=== PATIENT | male | born 1945 ===

== ENCOUNTER 2019-08-09 17:38 | Inpatient (IN) | payer MEDICAID, MEDICARE ==
--- NOTE | 2019-08-09 19:56 | Emergency Department Report ---
ED General Adult HPI - General Chief complaint: Dyspnea/Respdistress Stated complaint: CHEST PAIN Time Seen by Provider: 08/09/19 19:28 Source: patient Mode of arrival: Stretcher Limitations: No Limitations - History of Present Illness Initial comments: The patient presents to the emergency department with a chief complaint of chest pain. Patient states he went to his primary care physician today and received 80 mg of Lasix and was sent back home via transport. Patient states all in all to go home he felt when he describes his fortified kicks in his chest was patient was extremely nervous. Patient denies any shortness of breath, abdominal pain, or headache -: Sudden Severity scale (0 -10): 0 Consistency: now resolved Improves with: none Worsens with: none Associated Symptoms: denies other symptoms Treatments Prior to Arrival: none - Related Data Home Medications Medication Instructions Recorded Confirmed Last Taken Apixaban [Eliquis] 2.5 mg PO BID 08/09/19 08/09/19 Unknown Furosemide [Lasix TAB] 40 mg PO QDAY 08/09/19 08/09/19 Unknown Metoprolol [Lopressor TAB] 25 mg PO BID 08/09/19 08/09/19 Unknown Pantoprazole [Protonix] 40 mg PO BID 08/09/19 08/09/19 Unknown Spironolactone [Aldactone] 25 mg PO QDAY 08/09/19 08/09/19 Unknown Allergies Allergy/AdvReac Type Severity Reaction Status Date / Time lisinopril Allergy Angioedema Verified 08/09/19 21:15 ED Review of Systems ROS: Stated complaint: CHEST PAIN Other details as noted in HPI Comment: All other systems reviewed and negative Constitutional: denies: chills, fever Eyes: denies: eye pain, eye discharge, vision change ENT: denies: ear pain, throat pain Respiratory: denies: cough, shortness of breath, wheezing Cardiovascular: chest pain. denies: palpitations Endocrine: no symptoms reported Gastrointestinal: denies: abdominal pain, nausea, diarrhea Genitourinary: denies: urgency, dysuria Musculoskeletal: denies: back pain, joint swelling, arthralgia Skin: denies: rash, lesions Neurological: denies: headache, weakness, paresthesias Psychiatric: denies: anxiety, depression Hematological/Lymphatic: denies: easy bleeding, easy bruising ED Past Medical Hx - Past Medical History Hx Hypertension: Yes Hx Congestive Heart Failure: Yes Hx Renal Disease: Yes Hx Dementia: Yes Additional medical history: BPH, Afib, angina, pulmonary hypertension, cardiomyopathy - Surgical History Additional Surgical History: R shoulder - Social History Smoking Status: Former Smoker - Medications Home Medications: Home Medications Medication Instructions Recorded Confirmed Last Taken Type Apixaban [Eliquis] 2.5 mg PO BID 08/09/19 08/09/19 Unknown History Furosemide [Lasix TAB] 40 mg PO QDAY 08/09/19 08/09/19 Unknown History Metoprolol [Lopressor TAB] 25 mg PO BID 08/09/19 08/09/19 Unknown History Pantoprazole [Protonix] 40 mg PO BID 08/09/19 08/09/19 Unknown History Spironolactone [Aldactone] 25 mg PO QDAY 08/09/19 08/09/19 Unknown History ED Physical Exam - General Limitations: No Limitations General appearance: alert, in no apparent distress - Head Head exam: Present: atraumatic, normocephalic - Eye Eye exam: Present: normal appearance, PERRL, EOMI - ENT ENT exam: Present: mucous membranes moist - Neck Neck exam: Present: normal inspection - Respiratory Respiratory exam: Present: normal lung sounds bilaterally. Absent: respiratory distress - Cardiovascular Cardiovascular Exam: Present: regular rate, normal rhythm. Absent: systolic murmur, diastolic murmur, rubs, gallop - GI/Abdominal GI/Abdominal exam: Present: soft, normal bowel sounds. Absent: distended, tenderness - Rectal Rectal exam: Present: deferred - Extremities Exam Extremities exam: Present: normal inspection - Back Exam Back exam: Present: normal inspection - Neurological Exam Neurological exam: Present: alert, oriented X3, CN II-XII intact. Absent: motor sensory deficit - Psychiatric Psychiatric exam: Present: normal affect, normal mood - Skin Skin exam: Present: warm, dry, intact, normal color. Absent: rash ED Course Vital Signs 08/09/19 18:37 Temperature 97.8 F Pulse Rate 70 Respiratory 20 Rate Blood Pressure 145/60 O2 Sat by Pulse 100 Oximetry ED Medical Decision Making - Lab Data Result diagrams: 08/09/19 19:41 08/09/19 19:41 Lab Results 08/09/19 08/09/19 08/09/19 Range/Units 19:41 19:41 19:41 WBC 7.4 (4.5-11.0) K/mm3 RBC 4.30 (3.65-5.03) M/mm3 Hgb 12.5 (11.8-15.2) gm/dl Hct 37.7 (35.5-45.6) % MCV 88 (84-94) fl MCH 29 (28-32) pg MCHC 33 (32-34) % RDW 14.3 (13.2-15.2) % Plt Count 152 (140-440) K/mm3 Lymph % (Auto) 14.0 (13.4-35.0) % [place] % (Auto) 8.1 H (0.0-7.3) % Eos % (Auto) 0.1 (0.0-4.3) % Baso % (Auto) 0.5 (0.0-1.8) % Lymph # 1.0 L (1.2-5.4) K/mm3 [place] # 0.6 (0.0-0.8) K/mm3 Eos # 0.0 (0.0-0.4) K/mm3 Baso # 0.0 (0.0-0.1) K/mm3 Seg Neutrophils % 77.3 H (40.0-70.0) % Seg Neutrophils # 5.7 (1.8-7.7) K/mm3 Sodium 141 (137-145) mmol/L Potassium 3.8 (3.6-5.0) mmol/L Chloride 100.0 (98-107) mmol/L Carbon Dioxide 24 (22-30) mmol/L Anion Gap 21 mmol/L BUN 28 H (9-20) mg/dL Creatinine 1.4 (0.8-1.5) mg/dL Estimated GFR 49 ml/min BUN/Creatinine Ratio 20 % Glucose 94 (75-100) mg/dL Calcium 9.5 (8.4-10.2) mg/dL Magnesium 2.00 (1.7-2.3) mg/dL Total Bilirubin 0.50 (0.1-1.2) mg/dL AST 27 (5-40) units/L ALT 22 (7-56) units/L Alkaline Phosphatase 73 (35-129) units/L Troponin T 0.088 H (0.00-0.029) ng/mL NT-Pro-B Natriuret Pep 1836 H (0-900) pg/mL Total Protein 7.8 (6.3-8.2) g/dL Albumin 4.2 (3.9-5) g/dL Albumin/Globulin Ratio 1.2 % Triglycerides 39 (2-149) mg/dL Cholesterol 168 (50-199) mg/dL LDL Cholesterol Direct 102 (50-130) mg/dL HDL Cholesterol 72 H (40-59) mg/dL Cholesterol/HDL Ratio 2.33 % 08/09/ Range/Units 21:21 WBC (4.5-11.0) K/mm3 RBC (3.65-5.03) M/mm3 Hgb (11.8-15.2) gm/dl Hct (35.5-45.6) % MCV (84-94) fl MCH (28-32) pg MCHC (32-34) % RDW (13.2-15.2) % Plt Count (140-440) K/mm3 Lymph % (Auto) (13.4-35.0) % [place] % (Auto) (0.0-7.3) % Eos % (Auto) (0.0-4.3) % Baso % (Auto) (0.0-1.8) % Lymph # (1.2-5.4) K/mm3 [place] # (0.0-0.8) K/mm3 Eos # (0.0-0.4) K/mm3 Baso # (0.0-0.1) K/mm3 Seg Neutrophils % (40.0-70.0) % Seg Neutrophils # (1.8-7.7) K/mm3 Sodium (137-145) mmol/L Potassium (3.6-5.0) mmol/L Chloride (98-107) mmol/L Carbon Dioxide (22-30) mmol/L Anion Gap mmol/L BUN (9-20) mg/dL Creatinine (0.8-1.5) mg/dL Estimated GFR ml/min BUN/Creatinine Ratio % Glucose (75-100) mg/dL Calcium (8.4-10.2) mg/dL Magnesium (1.7-2.3) mg/dL Total Bilirubin (0.1-1.2) mg/dL AST (5-40) units/L ALT (7-56) units/L Alkaline Phosphatase (35-129) units/L Troponin T 0.086 H (0.00-0.029) ng/mL NT-Pro-B Natriuret Pep (0-900) pg/mL Total Protein (6.3-8.2) g/dL Albumin (3.9-5) g/dL Albumin/Globulin Ratio % Triglycerides (2-149) mg/dL Cholesterol (50-199) mg/dL LDL Cholesterol Direct (50-130) mg/dL HDL Cholesterol (40-59) mg/dL Cholesterol/HDL Ratio % - EKG Data -: EKG Interpreted by Me - EKG Data Interpretation: other (PVCs) - Radiology Data Radiology results: report reviewed - Medical Decision Making Past and scientific contacted and will come to interrogate the patient's defibrillator The balloon was interrogated and the patient has since was a V. tach and was shocked since times Spoke to Dr. Shearer will see patient as a consult Amiodarone drip initiated Critical Care Time: Yes Critical care time in (mins) excluding proc time.: 45 Critical care attestation.: If time is entered above; I have spent that time in minutes in the direct care of this critically ill patient, excluding procedure time. ED Disposition Clinical Impression: V-tach Disposition: DC-09 OP ADMIT IP TO THIS HOSP Is pt being admited?: Yes Does the pt Need Aspirin: No Condition: Fair
[2019-08-09 20:07] LABS: Basophils % (Auto) 0.5 % (0.0-1.8); Eosinophils % (Auto) 0.1 % (0.0-4.3); Hematocrit 37.7 % (35.5-45.6); Hemoglobin 12.5 gm/dl (11.8-15.2); Mean Corpuscular HGB Conc 33 % (32-34); Mean Corpuscular Volume 88 fl (84-94); Monocytes # (Auto) 0.6 K/mm3 (0.0-0.8); Monocytes % (Auto) 8.1 % (0.0-7.3); Platelet Count 152 K/mm3 (140-440); Red Cell Distribution Width 14.3 % (13.2-15.2)
--- NOTE | 2019-08-09 20:17 | XRay Report ---
CHEST 1 VIEW INDICATION: defib/CP COMPARISON: None FINDINGS: Support devices: Pacemaker in position. Heart: Upper limits of normal Lungs/Pleura: No pulmonary edema, pleural fluid or acute parenchymal disease. IMPRESSION: 1. No acute disease. Signer Name: Aniket Abreu MD Signed: 08/09/2019 8:13 PM Workstation Name: [id number]
[2019-08-09 20:19] LABS: Calcium 9.5 mg/dL (8.4-10.2)
[2019-08-09 20:20] LABS: Albumin 4.2 g/dL (3.9-5)
[2019-08-09 20:33] LABS: Chol/HDL Ratio 2.33 %
[2019-08-09] MEDS ORDERED: AMIODARONE 150 MG in DEXTROSE 5% IN WATER 97 ML IV ONE (21:45)
[2019-08-09] MEDS ORDERED: AMIODARONE 900 MG in DEXTROSE 5% IN WATER 482 ML IV SCH (22:00)
[2019-08-09] MEDS ORDERED: MORPHINE 2 MG/1 ML INJ IV PRN (22:31)
[2019-08-09] MEDS ORDERED: MAGNESIUM HYDROXIDE (MOM) ORAL LIQD UDC PO PRN (22:31)
--- NOTE | 2019-08-09 23:20 | History and Physical Report ---
History of Present Illness Date of examination: 08/09/19 Date of admission: 08/09/19 22:31 Chief complaint: Chest pain History of present illness: Patient is a 73-year-old -[place] male with known history of congestive heart failure and also history of defibrillator total pacemaker in place presenting to the emergency room today with chest pain. He had gone to his primary care physician earlier today and was returning to his home when he suddenly had multiple episodes of chest discomfort. He denies any shortness of breath. No nausea vomiting. No headache or dizziness. Upon arrival in the emergency room patient was found to be in V. tach. He was subsequently cardioverted and placed on amiodarone drip. His defibrillator and pacemaker was also interrogated. Automatic [employer]ancy [employer] addiction nurse was notified by the ER physician. Past History Past Medical History: heart failure Past Surgical History: Other (History of defibrillator and pacemaker placement, right shoulder surgery in the past.) Social history: no significant social history Family history: diabetes, stroke Medications and Allergies Allergies Allergy/AdvReac Type Severity Reaction Status Date / Time lisinopril Allergy Angioedema Verified 08/09/19 21:15 Home Medications Medication Instructions Recorded Confirmed Last Taken Type Apixaban [Eliquis] 2.5 mg PO BID 08/09/19 08/09/19 Unknown History Furosemide [Lasix TAB] 40 mg PO QDAY 08/09/19 08/09/19 Unknown History Metoprolol [Lopressor TAB] 25 mg PO BID 08/09/19 08/09/19 Unknown History Pantoprazole [Protonix] 40 mg PO BID 08/09/19 08/09/19 Unknown History Spironolactone [Aldactone] 25 mg PO QDAY 08/09/19 08/09/19 Unknown History Active Meds: Active Medications Amiodarone HCl 900 mg/ (Dextrose) 500 mls @ 33.333 mls/hr IV DIRECT LAN; Protocol Magnesium Hydroxide (Milk Of Magnesia) 30 ml PO Q4H PRN PRN Reason: Constipation Morphine Sulfate (Morphine) 2 mg IV Q4H PRN PRN Reason: Pain, Moderate (4-6) Sodium Chloride (Sodium Chloride Flush Syringe 10 Ml) 10 ml IV BID LAN Sodium Chloride (Sodium Chloride Flush Syringe 10 Ml) 10 ml IV PRN PRN PRN Reason: LINE FLUSH Review of Systems Cardiovascular: chest pain Exam - Constitutional Vitals: Temp Pulse Resp BP Pulse Ox 97.8 F 70 20 145/60 100 08/09/19 18:37 08/09/19 18:37 08/09/19 18:37 08/09/19 18:37 08/09/19 18:37 General appearance: Present: no acute distress, well-nourished - EENT Eyes: Present: PERRL ENT: hearing intact, clear oral mucosa, dentition normal - Neck Neck: Present: supple, normal ROM - Respiratory Respiratory effort: normal Respiratory: bilateral: CTA - Cardiovascular Rhythm: regular Heart Sounds: Present: S1 & S2 - Extremities Extremities: no ischemia Extremity abnormal: edema (1+ right lower extremity edema, trace left ankle edema.) Peripheral Pulses: within normal limits - Abdominal General gastrointestinal: Present: soft, non-tender, tender - Integumentary Integumentary: Present: clear, warm, dry - Musculoskeletal Musculoskeletal: strength equal bilaterally - Psychiatric Psychiatric: appropriate mood/affect, intact judgment & insight, cooperative - Neurologic Neurologic: CNII-XII intact, moves all extremities Results - Labs CBC & Chem 7: 08/10/19 03:37 08/10/19 03:37 Labs: Abnormal lab results 08/09/19 08/09/19 08/09/19 Range/Units 19:41 19:41 19:41 [place] % (Auto) 8.1 H (0.0-7.3) % Lymph # 1.0 L (1.2-5.4) K/mm3 Seg Neutrophils % 77.3 H (40.0-70.0) % BUN 28 H (9-20) mg/dL Troponin T 0.088 H (0.00-0.029) ng/mL NT-Pro-B Natriuret Pep 1836 H (0-900) pg/mL HDL Cholesterol 72 H (40-59) mg/dL 08/09/19 Range/Units 21:21 [place] % (Auto) (0.0-7.3) % Lymph # (1.2-5.4) K/mm3 Seg Neutrophils % (40.0-70.0) % BUN (9-20) mg/dL Troponin T 0.086 H (0.00-0.029) ng/mL NT-Pro-B Natriuret Pep (0-900) pg/mL HDL Cholesterol (40-59) mg/dL Assessment and Plan - Patient Problems (1) V-tach Current Visit: Yes Status: Acute Plan to address problem: Patient has been successfully cardioverted and placed on amiodarone drip. Will be closely monitored in the intensive care unit. We await further recommendation from cardiology. (2) DVT prophylaxis Current Visit: Yes Status: Acute Plan to address problem: Placed on subcutaneous heparin. (3) Full code status Current Visit: Yes Status: Acute
[2019-08-09] MEDS: ASPIRIN 81 MG TAB CHEW PO ONE (23:49)
[2019-08-10] MEDS ORDERED: ASPIRIN 81 MG TAB CHEW ONE (00:51)
[2019-08-10] MEDS ORDERED: MORPHINE 2 MG/1 ML INJ ONE (00:51)
[2019-08-10] MEDS: ASPIRIN 81 MG TAB CHEW PO ONE (00:59)
[2019-08-10] MEDS ORDERED: ALPRAZolam 0.25 MG TAB PO PRN (02:12)
[2019-08-10] MEDS ORDERED: ALPRAZolam 0.25 MG TAB ONE (02:18)
[2019-08-10 04:21] LABS: Basophils % (Auto) 0.6 % (0.0-1.8); Eosinophils % (Auto) 0.3 % (0.0-4.3); Lymphocytes # (Auto) 1.2 K/mm3 (1.2-5.4); Lymphocytes % (Auto) 15.9 % (13.4-35.0); Mean Corpuscular HGB Conc 32 % (32-34); Mean Corpuscular Volume 88 fl (84-94); Monocytes # (Auto) 0.9 K/mm3 (0.0-0.8); Monocytes % (Auto) 11.4 % (0.0-7.3); Platelet Count 150 K/mm3 (140-440); Red Blood Count 4.21 M/mm3 (3.65-5.03); Red Cell Distribution Width 14.1 % (13.2-15.2)
[2019-08-10 04:30] LABS: INR 1.08 (0.87-1.13)
[2019-08-10 04:42] LABS: Calcium 9.3 mg/dL (8.4-10.2)
--- NOTE | 2019-08-10 10:45 | Consultation ---
History of Present Illness Consult date: 08/10/19 Consult reason: arrhythmia History of present illness: This is a 73-year old male with an extensive cardiac history who receives his usual cardiac care with [facility]. Patient has a history of nonischemic cardiomyopathy and non-obstructive coronary artery disease by cardiac cath in 2014. Two years ago, he underwent a persantine thallium stress test that reported no ischemia. Patient has a [employer] cardiac defibrillator insitu. He has a history of paroxysmal atrial fibrillation and ventricular tachycardia status post ablation. Patient was previously treated with amiodarone for suppression but this was stopped by his commercial relationship manager several months ago. He on Eliquis for oral anticoagulation. Yesterday, patient went to his primary care office with reports of shortness of breath and lower extremity edema. Patient reports he was given two injection of presumably lasix. Patient reports on his way home, he became anxious, noted chest pain with palpitations and had multiple ICD shocks. Patient was brought to the emergency department for further evaluation. Initial lab measures a magnesium at 2.0 and a potassium of 3.8. His ICD was interrogated in the emergency department with reports of multiple shocks for VT and VF. He was marisol samia with intravenous amiodarone and admitted to the hospital. Cardiac consultation has been requested. Past History Family history: diabetes, stroke Medications and Allergies Allergies Allergy/AdvReac Type Severity Reaction Status Date / Time lisinopril Allergy Angioedema Verified 08/09/19 21:15 Home Medications Medication Instructions Recorded Confirmed Last Taken Type Apixaban [Eliquis] 2.5 mg PO BID 08/09/19 08/09/19 Unknown History Furosemide [Lasix TAB] 40 mg PO QDAY 08/09/19 08/09/19 Unknown History Metoprolol [Lopressor TAB] 25 mg PO BID 08/09/19 08/09/19 Unknown History Pantoprazole [Protonix] 40 mg PO BID 08/09/19 08/09/19 Unknown History Spironolactone [Aldactone] 25 mg PO QDAY 08/09/19 08/09/19 Unknown History Active Meds: Active Medications Alprazolam (Xanax) 0.25 mg PO Q8H PRN PRN Reason: Anxiety Amiodarone HCl 900 mg/ (Dextrose) 500 mls @ 33.333 mls/hr IV DIRECT LAN; Protocol Last Titration: 08/10/19 05:36 Dose: 0.5 mg/min, 16.667 mls/hr Documented by: Magnesium Hydroxide (Milk Of Magnesia) 30 ml PO Q4H PRN PRN Reason: Constipation Morphine Sulfate (Morphine) 2 mg IV Q4H PRN PRN Reason: Pain, Moderate (4-6) Last Admin: 08/10/19 00:59 Dose: 2 mg Documented by: Sodium Chloride (Sodium Chloride Flush Syringe 10 Ml) 10 ml IV BID LAN Sodium Chloride (Sodium Chloride Flush Syringe 10 Ml) 10 ml IV PRN PRN PRN Reason: LINE FLUSH Physical Examination Vital Signs Pulse Resp Pulse Ox 78 15 97 08/09/19 18:36 08/09/19 18:36 08/09/19 18:36 General appearance: no acute distress HEENT: Positive: PERRL Neck: Positive: trachea midline Cardiac: Positive: Other (paced) Lungs: Positive: Decreased Breath Sounds Neuro: Positive: Weakness Extremities: Absent: edema Results 08/10/19 03:37 08/10/19 03:37 Cardiac Enzymes 08/09/19 Range/Units 19:41 AST 27 (5-40) units/L Coagulation 08/10/19 Range/Units 03:37 PT 13.9 (12.2-14.9) Sec. INR 1.08 (0.87-1.13) APTT 27.0 (24.2-36.6) Sec. Lipids 08/09/19 Range/Units 19:41 Triglycerides 39 (2-149) mg/dL Cholesterol 168 (50-199) mg/dL HDL Cholesterol 72 H (40-59) mg/dL Cholesterol/HDL Ratio 2.33 % CBC 08/09/19 08/10/19 Range/Units 19:41 03:37 WBC 7.4 7.6 (4.5-11.0) K/mm3 RBC 4.30 4.21 (3.65-5.03) M/mm3 Hgb 12.5 12.0 (11.8-15.2) gm/dl Hct 37.7 37.0 (35.5-45.6) % Plt Count 152 150 (140-440) K/mm3 Lymph # 1.0 L 1.2 (1.2-5.4) K/mm3 [place] # 0.6 0.9 H (0.0-0.8) K/mm3 Eos # 0.0 0.0 (0.0-0.4) K/mm3 Baso # 0.0 0.0 (0.0-0.1) K/mm3 Comprehensive Metabolic Panel 08/09/19 08/10/19 Range/Units 19:41 03:37 Sodium 141 143 (137-145) mmol/L Potassium 3.8 4.0 (3.6-5.0) mmol/L Chloride 100.0 101.6 (98-107) mmol/L Carbon Dioxide 24 28 (22-30) mmol/L BUN 28 H 26 H (9-20) mg/dL Creatinine 1.4 1.6 H (0.8-1.5) mg/dL Glucose 94 107 H (75-100) mg/dL Calcium 9.5 9.3 (8.4-10.2) mg/dL AST 27 (5-40) units/L ALT 22 (7-56) units/L Alkaline Phosphatase 73 (35-129) units/L Total Protein 7.8 (6.3-8.2) g/dL Albumin 4.2 (3.9-5) g/dL Assessment and Plan ICD discharge for VT/VF on interrogation on IV amiodarone Hx of Non-obstructive CAD no ischemia by MPI 2016 Hx of Nonischemic CMP Hx of VT and paroxysmal Afib on eliquis for oral anticoagulation prior AV node ablation Dementia Recommendations: Keep magnesium >2 and potassium >4. Continue amiodarone for suppression of arrhythmias. Medical therapy for non-obstructive cardiomyopathy and nonischemic cardiomyopathy.
--- NOTE | 2019-08-10 13:22 | Progress Note ---
Assessment and Plan Assessment and plan: 73M who presents after discharge from ICD Recurrent VT s/p multiple AICD shocks was on amio drip , and then switched to po amio improved cardiology input appreciated Of note additionally the patient has Permanent afib s/p AV stephanie ablation s/p ICD placement (SOCIAL WORK PROGRAM COORDINATOR-D) Non-ischemic cardiomyopathy, LVEF 25-30% Chronic systolic heart failure - compensated on exam History Interval history: Review of systems Constitutional: No fevers, no malaise, no joint pains CVS: No chest pain, no orthopnea, no pedal edema GI: No abdominal pain, no diarrhea, no vomiting, no constipation Respiratory: , no wheezing, no coughing Hospitalist Physical - Physical exam Narrative exam: General.: Appears well, no distress, nontoxic HEENT: Moist mucous membranes, extraocular muscles intact, no lymphadenopathy Neck: supple Cardiac: S1-S2 heard Lungs: clear to auscultation bilaterally Abdomen: soft , nontender, nondistended, bowel sounds positive Extremities: no edema clubbing or cyanosis Skin: no rash or lesions Neurologic: no gross focal deficits Psych: calm, and cooperative - Constitutional Vitals: Temp Pulse Resp BP Pulse Ox 98.2 F 66 16 122/68 97 08/10/19 07:15 08/10/19 09:15 08/10/19 09:15 08/10/19 09:30 08/10/19 09:30 General appearance: Present: no acute distress Results - Labs CBC & Chem 7: 08/10/19 03:37 08/10/19 03:37 Labs: Laboratory Last Values WBC 7.6 K/mm3 (4.5-11.0) 08/10/19 03:37 RBC 4.21 M/mm3 (3.65-5.03) 08/10/19 03:37 Hgb 12.0 gm/dl (11.8-15.2) 08/10/19 03:37 Hct 37.0 % (35.5-45.6) 08/10/19 03:37 MCV 88 fl (84-94) 08/10/19 03:37 MCH 29 pg (28-32) 08/10/19 03:37 MCHC 32 % (32-34) 08/10/19 03:37 RDW 14.1 % (13.2-15.2) 08/10/19 03:37 Plt Count 150 K/mm3 (140-440) 08/10/19 03:37 Lymph % (Auto) 15.9 % (13.4-35.0) 08/10/19 03:37 [place] % (Auto) 11.4 % (0.0-7.3) H 08/10/19 03:37 Eos % (Auto) 0.3 % (0.0-4.3) 08/10/19 03:37 Baso % (Auto) 0.6 % (0.0-1.8) 08/10/19 03:37 Lymph # 1.2 K/mm3 (1.2-5.4) 08/10/19 03:37 [place] # 0.9 K/mm3 (0.0-0.8) H 08/10/19 03:37 Eos # 0.0 K/mm3 (0.0-0.4) 08/10/19 03:37 Baso # 0.0 K/mm3 (0.0-0.1) 08/10/19 03:37 Seg Neutrophils % 71.8 % (40.0-70.0) H 08/10/19 03:37 Seg Neutrophils # 5.5 K/mm3 (1.8-7.7) 08/10/19 03:37 PT 13.9 Sec. (12.2-14.9) 08/10/19 03:37 INR 1.08 (0.87-1.13) 08/10/19 03:37 APTT 27.0 Sec. (24.2-36.6) 08/10/19 03:37 Sodium 143 mmol/L (137-145) 08/10/19 03:37 Potassium 4.0 mmol/L (3.6-5.0) 08/10/19 03:37 Chloride 101.6 mmol/L (98-107) 08/10/19 03:37 Carbon Dioxide 28 mmol/L (22-30) 08/10/19 03:37 Anion Gap 17 mmol/L 08/10/19 03:37 BUN 26 mg/dL (9-20) H 08/10/19 03:37 Creatinine 1.6 mg/dL (0.8-1.5) H 08/10/19 03:37 Estimated GFR 42 ml/min 08/10/19 03:37 BUN/Creatinine Ratio 16 % 08/10/19 03:37 Glucose 107 mg/dL (75-100) H 08/10/19 03:37 Calcium 9.3 mg/dL (8.4-10.2) 08/10/19 03:37 Magnesium 2.00 mg/dL (1.7-2.3) 08/09/19 19:41 Total Bilirubin 0.50 mg/dL (0.1-1.2) 08/09/19 19:41 AST 27 units/L (5-40) 08/09/19 19:41 ALT 22 units/L (7-56) 08/09/19 19:41 Alkaline Phosphatase 73 units/L (35-129) 08/09/19 19:41 Troponin T 0.086 ng/mL (0.00-0.029) H 08/09/19 21:21 NT-Pro-B Natriuret Pep 1836 pg/mL (0-900) H 08/09/19 19:41 Total Protein 7.8 g/dL (6.3-8.2) 08/09/19 19:41 Albumin 4.2 g/dL (3.9-5) 08/09/19 19:41 Albumin/Globulin Ratio 1.2 % 08/09/19 19:41 Triglycerides 39 mg/dL (2-149) 08/09/19 19:41 Cholesterol 168 mg/dL (50-199) 08/09/19 19:41 LDL Cholesterol Direct 102 mg/dL (50-130) 08/09/19 19:41 HDL Cholesterol 72 mg/dL (40-59) H 08/09/19 19:41 Cholesterol/HDL Ratio 2.33 % 08/09/19 19:41 TSH 0.020 mlU/mL (0.270-4.200) L 08/10/19 10:08 Free T4 1.42 ng/dL (0.76-1.46) 08/10/19 10:08 Active Medications - Current Medications Current Medications: Generic Name Dose Route Start Last Admin Trade Name Freq PRN Reason Stop Dose Admin Alprazolam 0.25 mg 08/10/19 02:12 Xanax PO Q8H PRN Anxiety Amiodarone HCl 400 mg 08/10/19 22:00 Cordarone PO 08/20/19 21:59 BID LAN Amiodarone HCl 900 mg/ 500 mls @ 33.333 mls/hr 08/09/19 22:00 08/10/19 05:36 Dextrose IV 0.5 mg/min DIRECT LAN 16.667 mls/hr Titration Protocol 1 MG/MIN Magnesium Hydroxide 30 ml 08/09/19 22:31 Milk Of Magnesia PO Q4H PRN Constipation Metoprolol Succinate 50 mg 08/11/19 10:00 Metoprolol Xl PO QDAY LAN Morphine Sulfate 2 mg 08/09/19 22:31 08/10/19 00:59 Morphine IV 2 mg Q4H PRN Administration Pain, Moderate (4-6) Sodium Chloride 10 ml 08/10/19 10:00 08/10/19 12:13 Sodium Chloride Flush Syringe 10 Ml IV 10 ml BID LAN Administration Sodium Chloride 10 ml 08/09/19 22:31 Sodium Chloride Flush Syringe 10 Ml IV PRN PRN LINE FLUSH Spironolactone 25 mg 08/11/19 10:00 Aldactone PO QDAY [facility] Nutrition/Malnutrition Assess - Dietary Evaluation Nutrition/Malnutrition Findings: Nutrition Notes Start: 08/10/19 12:37 Freq: Status: Active Protocol: Document 08/10/19 12:37 CT (Rec: 08/10/19 12:54 CT [id number]) Co-Sign 08/10/19 12:37 LP Nutrition Notes Need for Assessment generated from: MD Order Initial or Follow up Assessment Current Diagnosis Hypertension,Heart Failure Other Pertinent Diagnosis V-tach Current Diet Cardiac Diet Labs/Tests BUN 26 Creatinine 1.6 HDL 72 Pertinent Medications Reviewed Height 5 ft 11 in Weight 68.039 kg Usual Body Weight 63.503 kg [place] Body Weight (kg) 78.18 BMI 20.9 Intake Prior to Admission Good Subjective/Other Information Pt was with RN at time of visit and seemed very disorientated. Pt daughter was on the phone helping pt answer questions. Pt daughter stated that pt is trying to get dental work done but he does not have any issues chewing or swallowing. Noted temporal and clavicle wasting. Pt did not want Cardiac Diet education at time of visit, handout was left for pt and pt daughter to read. Pt stated to come back for education. Burn Absent Trauma Absent GI Symptoms None Minimum of two criteria No Muscle Mass Mild Depletion (non-severe) #2 Nutrition Diagnosis Predicted suboptimal energy intake Etiology pt disoriented As Evidenced by Signs and Symptoms not observing pt eating #1 Nutrition Diagnosis Food and nutrition-related knowledge deficit Etiology no prior knowledge on cardiac diet As Evidenced by Signs and Symptoms pt wanting RD to come back to give education, pt very disoriented Is patient on ventilator? No Is Patient Ambulatory and/or Out of Bed Yes REE-([facility]-ambulatory/OOB) [ [id number] [id number]] Calculation Used for Recommendations [facility] Additional Notes Protein needs: 68-82 g/day (1- 1.2 g/kg/day) Fluid needs: 1 ml/kcal Nutrition Intervention Change Diet Order: Continue current diet Teaching Recipient Patient Learning Readiness Poor Teaching Methods Discussion,Handout Response to Teaching Unable to comprehend Education Handouts Provided Cardiac Diet Barriers to Learning Cognitive/Verbal RD phone number provided Yes Patient aware of follow up options Yes Goal #1 Meet >80% of energy and protien needs Follow-Up By: 08/14/19 Additional Comments Follow up for PO intakes Cardiac diet education
[2019-08-10] MEDS: AMIODARONE 200 MG TAB PO SCH (22:33)
[2019-08-10] MEDS: DOCUSATE SODIUM 100 MG CAP PO SCH (22:33)
[2019-08-11] MEDS: SPIRONOLACTONE 25 MG TAB PO SCH ×2 (08:55→09:11)
[2019-08-11] MEDS: DOCUSATE SODIUM 100 MG CAP PO SCH ×2 (08:56→09:11)
[2019-08-11] MEDS: METOPROLOL SUCCINATE XL 50 MG TAB PO SCH ×2 (08:56→09:11)
[2019-08-11] MEDS: AMIODARONE 200 MG TAB PO SCH ×2 (08:56→09:11)
--- NOTE | 2019-08-11 09:55 | Progress Note ---
Assessment and Plan - Patient Problems (1) Cardiomyopathy Current Visit: Yes Status: Acute (2) V-tach Current Visit: Yes Status: Acute Subjective Date of service: 08/11/19 Interval history: NO C/O Objective Vital Signs Temp Pulse Resp BP Pulse Ox 08/11/19 07:32 98.1 F 74 18 122/66 100 08/11/19 04:53 97.8 F 08/11/19 04:50 71 18 125/77 100 08/10/19 23:41 98.2 F 08/10/19 23:40 78 18 122/69 99 08/10/19 22:00 75 18 08/10/19 20:34 85 20 120/89 98 08/10/19 19:40 99.1 F 08/10/19 19:38 79 18 125/63 98 08/10/19 16:57 98.6 F 41 L 18 109/70 98 - Physical Examination General: No Apparent Distress HEENT: Positive: PERRL Neck: Positive: trachea midline Cardiac: Positive: Reg Rate and Rhythm Lungs: Positive: clear to auscultation Neuro: Positive: Grossly Intact, Weakness Abdomen: Positive: Unremarkable Extremities: Present: normal. Absent: edema
[2019-08-11 11:24] VITALS: BP 113/61
--- NOTE | 2019-08-11 13:48 | Discharge Summary ---
Providers - Providers Date of Admission: 08/09/19 22:31 Attending physician: ARBEN ODEN MD 08/09/19 22:14 Consult to Cardiology [CONS] Routine Consulting Provider: GIL DAVENPORT Reason For Exam: vtach 08/09/19 22:31 Consult to Dietitian/Nutrition [CONS] Routine Physician Instructions: Reason For Exam: Reason for Consult: Diet education Primary care physician: [id number] OPERATOR Hospitalization Condition: Fair Hospital course: 73M who presents after discharge from ICD Recurrent VT s/p multiple AICD shocks was on amio drip , and then switched to po amio and metoprolol and improved cardiology input appreciated Of note additionally the patient has Permanent afib s/p AV stephanie ablation s/p ICD placement (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) Non-ischemic cardiomyopathy, LVEF 25-30% Chronic systolic heart failure - compensated on exam Disposition: DC-01 TO HOME OR SELFCARE Time spent for discharge: 33 mins Core Measure Documentation - Palliative Care Palliative Care/ Comfort Measures: Not Applicable - Core Measures Any of the following diagnoses?: heart failure - Heart Failure Discharge Requirements BENITO/ARB for LVSD if EF <40%: Yes Beta tami at discharge: Yes Exam - Constitutional Vitals: Temp Pulse Resp BP Pulse Ox 98.4 F 70 18 113/61 98 08/11/19 11:21 08/11/19 11:21 08/11/19 11:21 08/11/19 11:21 08/11/19 11:21 General appearance: Present: no acute distress, well-nourished - EENT Eyes: Present: PERRL ENT: hearing intact, clear oral mucosa - Neck Neck: Present: supple, normal ROM - Respiratory Respiratory effort: normal Respiratory: bilateral: CTA - Cardiovascular Heart Sounds: Present: S1 & S2. Absent: rub, click - Extremities Extremities: pulses symmetrical, No edema Peripheral Pulses: within normal limits - Abdominal General gastrointestinal: Present: soft, non-tender, non-distended, normal bowel sounds Male genitourinary: Present: normal - Integumentary Integumentary: Present: clear, warm, dry - Musculoskeletal Musculoskeletal: gait normal, strength equal bilaterally - Psychiatric Psychiatric: appropriate mood/affect, intact judgment & insight - Neurologic Neurologic: CNII-XII intact, moves all extremities Plan Follow up with: MIL BEARD MD [Staff Physician] - 7 Days PRIMARY CARE, [Primary Care Provider] - 3-5 Days Prescriptions: Amiodarone [Cordarone 200 MG TAB] 400 mg PO BID #120 tablet Metoprolol Xl [Metoprolol SUCCINATE ER TAB] 50 mg PO QDAY #90 tablet
== END 2019-08-11 16:21 | disposition home or self-care (01) | DRG 309 ==
LOC: ED 17:38 → CC1 22:31 → 4A 08-10 08:42
PROVIDERS: ADMIT Internal Medicine Geriatric Medicine; ATTEND Internal Medicine
PROC: 4B02XTZ Measurement of Cardiac Defibrillator, External Approach (ICD-10-PCS; principal; 2019-08-09)
PROC: 5A2204Z Restoration of Cardiac Rhythm, Single (ICD-10-PCS; 2019-08-09)
DX: I47.2 Ventricular tachycardia (principal); I42.8 Other cardiomyopathies; I50.22 Chronic systolic (congestive) heart failure; I48.21 Permanent atrial fibrillation; I25.10 Atherosclerotic heart disease of native coronary artery without angina pectoris; F03.90 Unspecified dementia, unspecified severity, without behavioral disturbance, psychotic disturbance, mood disturbance, and anxiety; Z95.810 Presence of automatic (implantable) cardiac defibrillator; Z83.3 Family history of diabetes mellitus; Z82.3 Family history of stroke; Z79.899 Other long term (current) drug therapy; Z79.01 Long term (current) use of anticoagulants
CPT/HCPCS: 36415; 71045; 80048; 80053; 80061; 83735; 83880; 84439; 84443; 84484; 85025; 85610; 85730; 93005; 93010; G0378; J0282; J2270; J7060